=== PATIENT | male | born 1965 | race American Indian/Alaskan Native ===

== ENCOUNTER 2020-07-13 19:09 | Emergency (ER) | payer OTHER ==
[2020-07-13] MEDS ORDERED: LORazepam 2 MG/ML SDV IVPUSH ONE (19:52)
--- NOTE | 2020-07-13 19:55 | EDM.PDOC ---
ED HPI GENERAL MEDICAL PROBLEM - General Chief Complaint: Abdominal Pain Stated Complaint: MED[facility] Time Seen by Provider: 07/13/20 19:47 Source of Information: Reports: Patient, Police, RN Notes Reviewed History Limitations: Reports: No Limitations - History of Present Illness INITIAL COMMENTS - FREE TEXT/NARRATIVE: 55-year-old gentleman presents emergency department today for complaint of confusion, [facility] he is brought in with law enforcement has an extensive history of alcohol abuse and dependence was recently arrested this afternoon while intoxicated does have a history of extensive alcohol withdrawal syndrome. For this particular event he was somewhat confused while incarcerated EMS arrived vital signs were stable at the time GCS 14 he is fully communicative with me today I do not appreciate any confusion GCS is 15. He does complain of abdominal pain right upper quadrant he states this happened when he was incarcerated earlier today he does have bruising over his abdomen in that area. 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 EMS Report Right Upper Abdomen Pain Score (Numeric/FACES): 8 - Related Data Allergies Allergy/AdvReac Type Severity Reaction Status Date / Time fentanyl Allergy Other Verified 07/13/20 19:37 morphine Allergy Other Verified 07/13/20 19:37 Home Meds: Home Meds Gabapentin [Neurontin] 1,200 mg PO TID 07/13/20 [History] buPROPion [Wellbutrin] 450 mg PO DAILY 07/13/20 [History] Past Medical History Cardiovascular History: Reports: Hypertension Musculoskeletal History: Reports: Fracture Other Musculoskeletal History: collar bone Neurological History: Reports: CVA Psychiatric History: Reports: Addiction, Anxiety, Depression, PTSD - Infectious Disease History Infectious Disease History: Reports: Chicken Pox - Past Surgical History Cardiovascular Surgical History: Reports: Coronary Artery Stent Social & Family History - Tobacco Use Tobacco Use Status *Q: Current Every Day Tobacco User Years of Tobacco use: 30 Packs/Tins Daily: 0.5 - Caffeine Use Caffeine Use: Reports: Coffee, Soda, Tea - Alcohol Use Days Per Week of Alcohol Use: 7 Number of Drinks Per Day: 20 Total Drinks Per Week: 140 - Recreational Drug Use Recreational Drug Use: Yes Recreational Drug Type: Reports: Marijuana/Hashish Recreational Drug Use Frequency: Daily ED ROS GENERAL - Review of Systems Review Of Systems: See Below Constitutional: Reports: No Symptoms HEENT: Reports: No Symptoms Respiratory: Reports: No Symptoms Cardiovascular: Reports: No Symptoms GI/Abdominal: Reports: Abdominal Pain, Hematemesis : Reports: Hematuria Musculoskeletal: Reports: No Symptoms Skin: Reports: No Symptoms Neurological: Reports: Numbness, Tingling (Upper and lower extremities) ED EXAM, GI/ABD - Physical Exam Exam: See Below Exam Limited By: No Limitations General Appearance: Alert, WD/WN, No Apparent Distress Eyes: Bilateral: Normal Appearance Neck: Normal Inspection, Supple, Non-Tender, Full Range of Motion Respiratory/Chest: No Respiratory Distress, Lungs Clear, Normal Breath Sounds, No Accessory Muscle Use, Chest Non-Tender Cardiovascular: Regular Rate, Rhythm, No Murmur GI/Abdominal Exam: Normal Bowel Sounds, Soft, No Distention, No Mass, Tender (Right upper quadrant) Extremities: Normal Inspection, Normal Range of Motion, Non-Tender, No Pedal Edema Course - Vital Signs Last Recorded V/S: Last Vital Signs Temp 97.5 F 07/13/20 19:48 Pulse 83 07/13/20 19:48 Resp 16 07/13/20 19:48 BP 161/96 H 07/13/20 19:48 Pulse Ox 97 07/13/20 19:48 - Orders/Labs/Meds Orders: Active Orders 24 hr Category Date Time Status CORONAVIRUS COVID-19 RAPID [MOLEC] Stat Lab 07/13/20 22:09 Received Iopamidol [Isovue-300 (61%)] Med 07/13/20 20:15 Active 100 ml IV . DIRECTED Lactated Ringers [Ringers, Lactated] 1,000 ml Med 07/13/20 20:00 Active IV ASDIRECTED Sodium Chloride 0.9% [Normal Saline] 80 ml Med 07/13/20 20:15 Active IV ASDIRECTED Sodium Chloride 0.9% [Saline Flush] Med 07/13/20 20:14 Active 10 ml FLUSH ASDIRECTED PRN Medication Orders Lactated Ringer's (Ringers, Lactated) 1,000 mls @ 999 mls/hr IV ASDIRECTED EDDIE Last Admin: 07/13/20 20:09 Dose: 999 mls/hr Documented by: JASPAL Sodium Chloride (Normal Saline) 80 mls @ 3 mls/sec IV ASDIRECTED EDDIE Last Admin: 07/13/20 20:30 Dose: 3 mls/sec Documented by: CANDIDO Iopamidol (Isovue-300 (61%)) 100 ml IV . DIRECTED EDDIE Last Admin: 07/13/20 20:30 Dose: 100 ml Documented by: CANDIDO Sodium Chloride (Saline Flush) 10 ml FLUSH ASDIRECTED PRN PRN Reason: Keep Vein Open Last Admin: 07/13/20 20:29 Dose: 10 ml Documented by: CANDIDO Labs: Laboratory Tests 07/13/20 07/13/20 07/13/20 Range/Units 20:00 20:00 20:00 WBC 2.4 L (4.5-11.0) K/uL RBC 4.83 (4.30-5.90) M/uL Hgb 14.6 (12.0-15.0) g/dL Hct 41.8 (40.0-54.0) % MCV 87 (80-98) fL MCH 30 (27-31) pg MCHC 35 (32-36) % Plt Count 103 L (150-400) K/uL Neut % (Auto) 60 (36-66) % Lymph % (Auto) 26 (24-44) % Lamb % (Auto) 11 H (2-6) % Eos % (Auto) 2 (2-4) % Baso % (Auto) 0 (0-1) % PT 10.6 (9.5-12.0) sec INR 0.97 (0.80-1.20) Sodium 145 (140-148) mmol/L Potassium 3.2 L (3.6-5.2) mmol/L Chloride 109 H (100-108) mmol/L Carbon Dioxide 24 (21-32) mmol/L Anion Gap 15.2 H (5.0-14.0) mmol/L BUN 13 (7-18) mg/dL Creatinine 1.0 (0.8-1.3) mg/dL Est Cr Clr Drug Dosing 88.90 mL/min Estimated GFR (MDRD) > 60 (>60) Glucose 122 H (74-106) mg/dL Lactic Acid (0.4-2.0) mmol/L Calcium 7.5 L (8.5-10.1) mg/dL Total Bilirubin 0.5 (0.2-1.0) mg/dL AST 137 H (15-37) U/L ALT 126 H (12-78) U/L Alkaline Phosphatase 99 (46-116) U/L Troponin I < 0.017 (0.000-0.056) ng/mL Total Protein 6.5 (6.4-8.2) g/dL Albumin 3.5 (3.4-5.0) g/dL Globulin 3.0 (2.3-3.5) g/dL Albumin/Globulin Ratio 1.2 (1.2-2.2) Lipase 177 (73-393) U/L Urine Color (YELLOW) Urine Appearance (CLEAR) Urine pH (5.0-8.0) Ur Specific [place] (1.008-1.030) Urine Protein (NEGATIVE) mg/dL Urine Glucose (UA) (NEGATIVE) mg/dL Urine Ketones (NEGATIVE) mg/dL Urine Occult Blood (NEGATIVE) Urine Nitrite (NEGATIVE) Urine Bilirubin (NEGATIVE) Urine Urobilinogen (0.2-1.0) EU/dL Ur Leukocyte Esterase (NEGATIVE) Urine RBC (0-5) Urine WBC (0-5) Ur Epithelial Cells Amorphous Sediment Urine Bacteria Urine Mucus Urine Opiates Screen (NEGATIVE) Ur Oxycodone Screen (NEGATIVE) Urine Methadone Screen (NEGATIVE) Ur Propoxyphene Screen (NEGATIVE) Ur Barbiturates Screen (NEGATIVE) Ur Tricyclics Screen (NEGATIVE) Ur Phencyclidine Scrn (NEGATIVE) Ur Amphetamine Screen (NEGATIVE) U Methamphetamines Scrn (NEGATIVE) Urine MDMA Screen (NEGATIVE) U Benzodiazepines Scrn (NEGATIVE) U Cocaine Metab Screen (NEGATIVE) U Marijuana (THC) Screen (NEGATIVE) Ethyl Alcohol mg/dL 07/13/20 07/13/20 07/13/20 Range/Units 20:00 20:00 22:08 WBC (4.5-11.0) K/uL RBC (4.30-5.90) M/uL Hgb (12.0-15.0) g/dL Hct (40.0-54.0) % MCV (80-98) fL MCH (27-31) pg MCHC (32-36) % Plt Count (150-400) K/uL Neut % (Auto) (36-66) % Lymph % (Auto) (24-44) % Lamb % (Auto) (2-6) % Eos % (Auto) (2-4) % Baso % (Auto) (0-1) % PT (9.5-12.0) sec INR (0.80-1.20) Sodium (140-148) mmol/L Potassium (3.6-5.2) mmol/L Chloride (100-108) mmol/L Carbon Dioxide (21-32) mmol/L Anion Gap (5.0-14.0) mmol/L BUN (7-18) mg/dL Creatinine (0.8-1.3) mg/dL Est Cr Clr Drug Dosing mL/min Estimated GFR (MDRD) (>60) Glucose (74-106) mg/dL Lactic Acid 1.6 (0.4-2.0) mmol/L Calcium (8.5-10.1) mg/dL Total Bilirubin (0.2-1.0) mg/dL AST (15-37) U/L ALT (12-78) U/L Alkaline Phosphatase (46-116) U/L Troponin I (0.000-0.056) ng/mL Total Protein (6.4-8.2) g/dL Albumin (3.4-5.0) g/dL Globulin (2.3-3.5) g/dL Albumin/Globulin Ratio (1.2-2.2) Lipase (73-393) U/L Urine Color Yellow (YELLOW) Urine Appearance Clear (CLEAR) Urine pH 6.5 (5.0-8.0) Ur Specific [place] 1.020 (1.008-1.030) Urine Protein Negative (NEGATIVE) mg/dL Urine Glucose (UA) Negative (NEGATIVE) mg/dL Urine Ketones Negative (NEGATIVE) mg/dL Urine Occult Blood Negative (NEGATIVE) Urine Nitrite Negative (NEGATIVE) Urine Bilirubin Negative (NEGATIVE) Urine Urobilinogen 1.0 (0.2-1.0) EU/dL Ur Leukocyte Esterase Negative (NEGATIVE) Urine RBC Not seen (0-5) Urine WBC 0-5 (0-5) Ur Epithelial Cells Few Amorphous Sediment Not seen Urine Bacteria Few Urine Mucus Moderate Urine Opiates Screen (NEGATIVE) Ur Oxycodone Screen (NEGATIVE) Urine Methadone Screen (NEGATIVE) Ur Propoxyphene Screen (NEGATIVE) Ur Barbiturates Screen (NEGATIVE) Ur Tricyclics Screen (NEGATIVE) Ur Phencyclidine Scrn (NEGATIVE) Ur Amphetamine Screen (NEGATIVE) U Methamphetamines Scrn (NEGATIVE) Urine MDMA Screen (NEGATIVE) U Benzodiazepines Scrn (NEGATIVE) U Cocaine Metab Screen (NEGATIVE) U Marijuana (THC) Screen (NEGATIVE) Ethyl Alcohol 169 mg/dL 07/13/20 Range/Units 22:08 WBC (4.5-11.0) K/uL RBC (4.30-5.90) M/uL Hgb (12.0-15.0) g/dL Hct (40.0-54.0) % MCV (80-98) fL MCH (27-31) pg MCHC (32-36) % Plt Count (150-400) K/uL Neut % (Auto) (36-66) % Lymph % (Auto) (24-44) % Lamb % (Auto) (2-6) % Eos % (Auto) (2-4) % Baso % (Auto) (0-1) % PT (9.5-12.0) sec INR (0.80-1.20) Sodium (140-148) mmol/L Potassium (3.6-5.2) mmol/L Chloride (100-108) mmol/L Carbon Dioxide (21-32) mmol/L Anion Gap (5.0-14.0) mmol/L BUN (7-18) mg/dL Creatinine (0.8-1.3) mg/dL Est Cr Clr Drug Dosing mL/min Estimated GFR (MDRD) (>60) Glucose (74-106) mg/dL Lactic Acid (0.4-2.0) mmol/L Calcium (8.5-10.1) mg/dL Total Bilirubin (0.2-1.0) mg/dL AST (15-37) U/L ALT (12-78) U/L Alkaline Phosphatase (46-116) U/L Troponin I (0.000-0.056) ng/mL Total Protein (6.4-8.2) g/dL Albumin (3.4-5.0) g/dL Globulin (2.3-3.5) g/dL Albumin/Globulin Ratio (1.2-2.2) Lipase (73-393) U/L Urine Color (YELLOW) Urine Appearance (CLEAR) Urine pH (5.0-8.0) Ur Specific [place] (1.008-1.030) Urine Protein (NEGATIVE) mg/dL Urine Glucose (UA) (NEGATIVE) mg/dL Urine Ketones (NEGATIVE) mg/dL Urine Occult Blood (NEGATIVE) Urine Nitrite (NEGATIVE) Urine Bilirubin (NEGATIVE) Urine Urobilinogen (0.2-1.0) EU/dL Ur Leukocyte Esterase (NEGATIVE) Urine RBC (0-5) Urine WBC (0-5) Ur Epithelial Cells Amorphous Sediment Urine Bacteria Urine Mucus Urine Opiates Screen Negative (NEGATIVE) Ur Oxycodone Screen Negative (NEGATIVE) Urine Methadone Screen Negative (NEGATIVE) Ur Propoxyphene Screen Negative (NEGATIVE) Ur Barbiturates Screen Negative (NEGATIVE) Ur Tricyclics Screen Negative (NEGATIVE) Ur Phencyclidine Scrn Negative (NEGATIVE) Ur Amphetamine Screen Negative (NEGATIVE) U Methamphetamines Scrn Negative (NEGATIVE) Urine MDMA Screen Negative (NEGATIVE) U Benzodiazepines Scrn Presumptive positive H (NEGATIVE) U Cocaine Metab Screen Negative (NEGATIVE) U Marijuana (THC) Screen Negative (NEGATIVE) Ethyl Alcohol mg/dL Meds: Medications Generic Name Dose Route Start Last Admin Trade Name Freq PRN Reason Stop Dose Admin Lactated Ringer's 1,000 mls @ 999 mls/hr 07/13/20 20:00 07/13/20 20:09 Ringers, Lactated IV 999 mls/hr ASDIRECTED EDDIE Administration Sodium Chloride 80 mls @ 3 mls/sec 07/13/20 20:15 07/13/20 20:30 Normal Saline IV 3 mls/sec ASDIRECTED EDDIE Administration Iopamidol 100 ml 07/13/20 20:15 07/13/20 20:30 Isovue-300 (61%) IV 100 ml . DIRECTED EDDIE Administration Sodium Chloride 10 ml 07/13/20 20:14 07/13/20 20:29 Saline Flush FLUSH 10 ml ASDIRECTED PRN Administration Keep Vein Open Discontinued Medications Generic Name Dose Route Start Last Admin Trade Name Freq PRN Reason Stop Dose Admin Lorazepam 1 mg 07/13/20 19:52 07/13/20 20:04 Ativan IVPUSH 07/13/20 19:53 1 mg ONETIME ONE Administration Departure - Departure Time of Disposition: 22:24 Disposition: DC/Tfer to Inpt Rehab Fac 62 Condition: Poor Clinical Impression: Alcohol intoxication Qualifiers: Complication of substance-induced condition: uncomplicated Qualified Code(s): F10.920 - Alcohol use, unspecified with intoxication, uncomplicated - Discharge Information Instructions: Alcohol Intoxication, [id number] Referrals: PCP,None [Primary Care Provider] - Forms: ED Department Discharge Additional Instructions: Please report to [facility] for further evaluation and treatment Sepsis Event Note (ED) - Focused Exam Vital Signs: Vital Signs Temp Pulse Resp BP Pulse Ox 07/13/20 19:48 97.5 F 83 16 161/96 H 97 07/13/20 19:21 74 143/89 H - My Orders Last 24 Hours: My Active Orders 07/13/20 20:00 Lactated Ringers [Ringers, Lactated] 1,000 ml IV ASDIRECTED 07/13/20 20:14 Sodium Chloride 0.9% [Saline Flush] 10 ml FLUSH ASDIRECTED PRN 07/13/20 20:15 Iopamidol [Isovue-300 (61%)] 100 ml IV . DIRECTED Sodium Chloride 0.9% [Normal Saline] 80 ml IV ASDIRECTED 07/13/20 22:09 CORONAVIRUS COVID-19 RAPID [MOLEC] Stat - Assessment/Plan Last 24 Hours: My Active Orders 07/13/20 20:00 Lactated Ringers [Ringers, Lactated] 1,000 ml IV ASDIRECTED 07/13/20 20:14 Sodium Chloride 0.9% [Saline Flush] 10 ml FLUSH ASDIRECTED PRN 07/13/20 20:15 Iopamidol [Isovue-300 (61%)] 100 ml IV . DIRECTED Sodium Chloride 0.9% [Normal Saline] 80 ml IV ASDIRECTED 07/13/20 22:09 CORONAVIRUS COVID-19 RAPID [MOLEC] Stat Plan: Assessment Acuity = acute Site and laterality = alcohol intoxication Etiology = EtOH Manifestations = none Location of injury = Home Lab values = WBC low at 2.4 consistent leukopenia potassium low 3.2 consistent hypokalemia lactic acid normal 1.7 AST elevated 127 ALT elevated 126 consistent elevated liver enzymes troponin was negative EtOH elevated 169 consistent with intoxication urinalysis negative urine drug screen also negative CT scan abdomen shows no acute process Plan Did discuss options with law enforcement he does have a history of significant alcohol withdrawal elected to go to [facility] for further treatment This note was dictated using [employer] voice recognition software please call with any questions on syntax or grammar.
[2020-07-13] MEDS ORDERED: Lactated Ringers 1,000 ML IV SCH (20:00)
[2020-07-13] MEDS ORDERED: Sodium Chloride 0.9% 10 ML Syringe FLUSH PRN (20:14)
[2020-07-13] MEDS ORDERED: Sodium Chloride 0.9% 80 ML IV SCH (20:15)
[2020-07-13] MEDS ORDERED: Iopamidol 612 MG/ML 100 ML Bottle IV SCH (20:15)
--- NOTE | 2020-07-13 21:00 | CRLCT ---
INDICATION: Right upper quadrant trauma. TECHNIQUE: CT of the abdomen and pelvis with 100 cc Isovue 300 IV contrast. Coronal and sagittal reconstructions. COMPARISON: None. FINDINGS: Diffuse hepatic steatosis. Hepatic and portal veins are patent. The gallbladder, spleen, pancreas, and adrenal glands are negative. Symmetric enhancement of the kidneys. No hydronephrosis. No obstructing urinary calculi. The bladder is normal in appearance. Mildly enlarged prostate gland. No bowel dilation. Negative appendix. No intraperitoneal free air or fluid. Small fat containing midline ventral hernia. No lymphadenopathy. Degenerative changes of the spine. Status post L3-L5 laminectomies. Abdominal wall soft tissues are unremarkable. Bibasilar atelectasis. The lung bases are otherwise clear. IMPRESSION: 1. No acute findings in the abdomen or pelvis. 2. Diffuse hepatic steatosis. Please note that all CT scans at this facility use dose modulation, iterative reconstruction, and/or weight-based dosing when appropriate to reduce radiation dose to as low as reasonably achievable. Dictated by Samantha June MD @ Jul 13 2020 8:49PM Signed by Dr. Samantha June @ Jul 13 2020 8:58PM
== END 2020-07-13 22:42 ==
LOC: JP.ED 19:09
DX: F10.120 Alcohol abuse with intoxication, uncomplicated (principal); I10 Essential (primary) hypertension; Z86.73 Personal history of transient ischemic attack (TIA), and cerebral infarction without residual deficits; Z72.0 Tobacco use; Z79.899 Other long term (current) drug therapy; Z88.4 Allergy status to anesthetic agent; Z88.5 Allergy status to narcotic agent; Y90.6 Blood alcohol level of 120-199 mg/100 ml; Z20.822 Contact with and (suspected) exposure to COVID-19
CPT/HCPCS: 36415; 74177; 80053; 80305; 80307; 81001; 83605; 83690; 84484; 85025; 85610; 87635; 96374; 99285; J2060; J7120; Q9967; 99284; U0002

== ENCOUNTER 2023-03-27 06:17 | Day surgery (SDC) | payer MEDICAID ==
[2023-03-27] MEDS ORDERED: Sodium Chloride 0.9% 1,000 ML IV SCH (07:00)
[2023-03-27] MEDS ORDERED: fentaNYL 50 MCG/ML SDV ONE (07:05)
[2023-03-27] MEDS ORDERED: Propofol 200 MG/20 ML SDV ONE ×2 (07:05→07:34)
[2023-03-27] MEDS ORDERED: Propofol 200 MG/20 ML SDV IV ONE (08:00)
== END 2023-03-27 10:20 ==
LOC: JP.SDS 06:17
PROVIDERS: ATTEND Internal Medicine
DX: K92.2 Gastrointestinal hemorrhage, unspecified (principal); R10.9 Unspecified abdominal pain; Z88.5 Allergy status to narcotic agent
CPT/HCPCS: 45378; J2704; J3010; J7030